=== PATIENT | female | born 1960 | race Two or more races ===

== ENCOUNTER 2018-11-02 12:47 | Emergency (ER) | payer OTHER ==
[2018-11-02] MEDS: IBUPROFEN 600 MG TAB PO (14:08)
== END 2018-11-02 16:09 | disposition home or self-care (01) ==
LOC: FTE 16:09
DX: S93.401A Sprain of unspecified ligament of right ankle, initial encounter (principal); I10 Essential (primary) hypertension; X58.XXXA Exposure to other specified factors, initial encounter; Y92.9 Unspecified place or not applicable; Z59.0 Homelessness
CPT/HCPCS: 73610; 73610-RT; 99283-25